=== PATIENT | female | born 1960 | race Caucasian/White ===

== ENCOUNTER → 2017-09-20 | Outpatient (CLI) | payer BC ==
[~2017-09-20] MED LIST: IBP800T PO
--- NOTE | 2017-09-20 20:04 | Diagnostic Imaging Report ---
Right breast ultrasound. INDICATION: Nodule at 12 o'clock zone seen on mammography. FINDINGS: There is a 5 mm simple-appearing cyst seen in the 12 o'clock zone at 3 cm from the nipple matching the location and size of the mammographic abnormality with no suspicious lesion in the upper right breast otherwise. IMPRESSION: The nodule seen on mammography is compatible with a simple cyst. Annual screening mammogram is recommended. ACR BI-RADS Category 2: Benign findings. Dictated by: Dictated on workstation # [id number]
--- NOTE | 2017-09-20 20:06 | Diagnostic Imaging Report ---
Right breast diagnostic mammogram with tomography. The current study was also evaluated with a Computer Aided Detection (CAD) system. INDICATION: Focal asymmetry in the upper aspect of the right MLO view at 12 o'clock zone. FINDINGS: The right breast demonstrate heterogeneously dense parenchyma which may decrease mammographic sensitivity. The nodule is confirmed with circumscribed margins and measures about 6 mm at 12 o'clock zone. There are no suspicious features based on mammographic evaluation. It is about 3-4 CM from the nipple. IMPRESSION: 6 mm nodule at 12 o'clock zone about 3-4 cm from the nipple have circumscribed margins and favored of benign etiology. Ultrasound evaluation is pending. ACR BI-RADS Category 0: Incomplete. (Needs additional imaging evaluation). Result letter will be mailed to the patient. Note: At least 10% of breast cancer is not imaged by mammography. Dictated by: Dictated on workstation # [id number]
== END ==
LOC: RAD 13:06
PROVIDERS: ATTEND Obstetrics & Gynecology
DX: R92.8 Other abnormal and inconclusive findings on diagnostic imaging of breast (principal)